=== PATIENT | male | born 1995 | race African-American/Black ===

== ENCOUNTER 2019-06-07 13:51 | Emergency (ER) | payer SELFPAY ==
[~2019-06-07] VITALS: Ht 182.9 cm; Wt 86.2 kg
[2019-06-07 16:14] VITALS: BP 115/83
[2019-06-07] MEDS ORDERED: METHOCARBAMOL 500 MG TAB PO ONE (16:30)
[2019-06-07] MEDS ORDERED: KETOROLAC TROMETH 60MG/2ML VIAL IM ONE (16:30)
== END 2019-06-07 17:16 | disposition home or self-care (01) ==
LOC: ER 13:51
DX: R07.81 Pleurodynia (principal); M79.10 Myalgia, unspecified site
CPT/HCPCS: 71101; 96372; 99283; J1885